=== PATIENT | female | born 1990 | race Caucasian/White ===

== ENCOUNTER 2018-11-21 19:56 | Emergency (ER) | payer BC, OTHER ==
[~2018-11-21] VITALS: Ht 162.6 cm; Wt 75.0 kg
[~2018-11-21 19:56] MED LIST: NAPR-985 PO
[2018-11-21 20:06] VITALS: Ht 162.6 cm; Wt 75.0 kg
[2018-11-21] MEDS ORDERED: IBUPROFEN 600 MG TAB PO ONE (21:30)
[2018-11-21] MEDS ORDERED: IBUPROFEN 800 MG TAB PO ONE (22:00)
[2018-11-21 23:39] VITALS: BP 118/72; PULSE 82; RESP 17
== END 2018-11-21 23:39 | disposition home or self-care (01) ==
LOC: FTE 19:56
DX: S93.401A Sprain of unspecified ligament of right ankle, initial encounter (principal); X50.1XXA Overexertion from prolonged static or awkward postures, initial encounter; Y92.9 Unspecified place or not applicable
CPT/HCPCS: 29515; 73610; 73630; 99284; Z7610